=== PATIENT | female | born 2005 | race Caucasian/White ===

== ENCOUNTER 2024-09-08 06:15 | Outpatient (REF) | payer OTHER, SELFPAY ==
--- NOTE | ~2024-09-08 | US_ITS ---
EXAMINATION: US PELVIS LIMITED HISTORY: 9 MONTH H/O LT INGUINAL MASS ? SM HERNIA VS LN COMPARISON: There are no prior studies for comparison. TECHNIQUE: Sonographic examination of the left inguinal region was performed. FINDINGS: A small fat-containing inguinal hernia is noted which increases in size with Valsalva maneuver. The fascial defect measures approximately 5 mm in size. No enlarged lymph nodes are identified. US/US pelvic limited IMPRESSION: Small fat-containing left inguinal hernia. Electronically signed by: Alejandro Crump MD 09/09/2024 07:04 AM EDT
== END 2024-09-08 06:16 | disposition home or self-care (01) ==
LOC: HO.UMASIMG 06:15
PROVIDERS: Visit Provider Family Medicine
DX: R19.09 Other intra-abdominal and pelvic swelling, mass and lump (principal)
CPT/HCPCS: 76857

== ENCOUNTER → 2024-09-08 13:00 | Outpatient (BNV) | payer OTHER, SELFPAY | PROVIDERS: Visit Provider Radiology Diagnostic Radiology | DX: K40.90 Unilateral inguinal hernia, without obstruction or gangrene, not specified as recurrent (principal) | CPT/HCPCS: 76857 ==